=== PATIENT | male | born 1955 | race Caucasian/White ===

== ENCOUNTER 2018-01-13 20:41 | Emergency (ER) | payer OTHER ==
[2018-01-13] MEDS: Ketorolac 30 MG/ML SDV IVPUSH ONE (21:44)
[2018-01-13] MEDS ORDERED: Naproxen 500 MG Tab ONE (23:30)
[2018-01-13] MEDS: Diphtheria,Pertussis(Acell),Tetanus Vaccine 0.5 ML SDV inactive IM ONE (23:57)
--- NOTE | 2018-01-14 09:21 | CT ---
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 There is mild bifrontal atrophy. No masses or mass effect. No intracranial hemorrhage. No evidence of acute or subacute infarct. There is mucosal thickening in the ethmoid sinuses consistent with chronic sinusitis. No fractures. IMPRESSION: No acute intracranial abnormalities. [id number] [facility]
--- NOTE | 2018-01-14 09:24 | CT ---
DATE OF SERVICE: 01/13/18 CLINICAL DATA: Chest pain due to injury UNENHANCED CHEST CT: Routine protocol. There are mild atelectatic changes in the dependent portion of both lungs and in both lung bases. The lungs are otherwise clear. No pneumothorax. No pleural effusions. The heart size is normal. No pericardial effusion. No aortic aneurysm. No mediastinal or hilar adenopathy. No evidence of hematoma. No displaced fractures. IMPRESSION: No acute abnormalities. [id number] [facility]
--- NOTE | 2018-01-14 09:28 | CT ---
DATE OF SERVICE: 01/13/18 CLINICAL DATA: injury CERVICAL SPINE CT: Multislice axial acquisition was performed. No priors. There is straightening of the normal cervical lordosis on the sagittal reformations. This is most likely positional or due to muscle spasm. No acute fracture or dislocation. No lytic or blastic bone lesions. There is degenerative disc disease at multiple levels with disc space narrowing at multiple levels. There are degenerative changes involving the atlantoaxial articulation. There is facet joint and uncinate joint hypertrophy at multiple levels. The soft tissues are unremarkable. IMPRESSION: No acute abnormalities. [id number] [facility]
--- NOTE | 2018-01-14 09:32 | CT ---
DATE OF SERVICE: 01/13/18 CLINICAL DATA: facial injury FACIAL CT: Multislice axial acquisition was performed. No priors. There is significant beam-hardening and streak artifact produced by the patient' s metallic dental work. This does obscure adjacent structures. There is a minimally displaced fracture through the nasal bone on the right. There is also a fracture through the maxillary spine. No other fractures. There is a 5 mm rounded metallic density in the soft tissues anterior to the right maxilla. There is mucosal thickening in the maxillary and ethmoid sinuses consistent with chronic sinusitis. No air-fluid levels. The patient is status post scleral banding on the left. The globes and orbital contents otherwise appear unremarkable. No other significant findings. [id number] [facility]
--- NOTE | 2018-01-14 19:02 | ER ---
DATE OF SERVICE: 01/13/2018 HISTORY OF PRESENT ILLNESS: This gentleman was riding his tractor when a 10- inch tree fell on him, causing a laceration to his scalp. He denied any loss of consciousness. No nausea. He states he walked a quarter of a mile to get home. He complains of neck pain. He denies any nausea or vomiting. PHYSICAL EXAMINATION: HEENT: He has multiple superficial abrasions noted on the scalp with a minimal hematoma. Under his right eye, there was another abrasion and some ecchymosis. NECK: Supple with paraspinal muscle tenderness. FACE: His nose is midline. No apparent tenderness to his nasal bridge, just the erythema and ecchymosis under the right eye. LUNGS: Good air movement. No wheezes. He is tender to chest wall. I do not see any ecchymosis to the chest wall; the right greater than on the left, I do not see any ecchymoses. HEART: Regular rate and rhythm. Normal S1, S2. LABORATORY DATA: CT scan was done of the head, neck, and chest, which did not reveal any bony structures and suggested a nasal fracture, however clinically the patient denies any discomfort and physical exam is unremarkable. ASSESSMENT: 1. Scalp abrasions. 2. Cervical muscle spasm. PLAN: He received Toradol 30 mg IV in the emergency room. He felt better. He was sent home on Naprosyn 500 b.i.d. I gave him a DTaP and a soft cervical collar, and I asked him to follow up in clinic. CESILIA/NATALIO /[id number] MTDShabana
== END 2018-01-14 00:20 | disposition home or self-care (01) ==
LOC: LB.ED 20:41
DX: S00.03XA Contusion of scalp, initial encounter (principal); S00.83XA Contusion of other part of head, initial encounter; M62.838 Other muscle spasm; Z23 Encounter for immunization; W20.8XXA Other cause of strike by thrown, projected or falling object, initial encounter
CPT/HCPCS: 70450; 70486; 71250; 72125; 90471; 90715; 96374; 99283; A9270; J1885